=== PATIENT | male | born 1930 | race Caucasian/White ===

== ENCOUNTER 2017-09-06 11:53 | Observation (INO) ==
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
--- OUTSIDE RECORDS SUMMARY | 2017-09-06 12:09 | External Medical Summary ---
:1930 Author Organization [employer] Care Team Providers Name Role Phone DevikaAden rashid Provider Role Unavailable Allergies No Known Allergies Problems Problem Type Condition Code Onset Dates Condition Status Problem Shoulder pain, right 719.41 Active Problem Obstructive uropathy 599.60 Active Problem Cardiac arrhythmia 427.9 Active Problem Abdominal pain 789.00 Active Problem Abnormal chest x-ray 793.2 Active Problem Chest pain 786.50 Active Problem Bronchitis 490 Active Problem Hypothyroidism 244.9 Active Problem Fluid retention 276.69 Active Problem Seasonal allergies 477.9 Active Problem Ureteral calculus 592.1 Active Problem Encounter for long-term (current) V58.69 Active use of other medications Problem Hyperlipidemia, Other and 272.4 Active unspecified Problem Diabetes mellitus without mention of 250.00 Active complication, type II or unspecified type, not stated as uncontrolled Medications Medication Code System Code Instructions Start Date End Date Status Dosage Lomotil [facility] 30869-194 2.5-0.025 MG 1-2 1-31 Orally QID prn TABLETS Results No Known Results Summary Purpose [employer] Submission
--- OUTSIDE RECORDS SUMMARY | 2017-09-06 12:09 | External Medical Summary ---
:1930 Author Organization [employer] Care Team Providers Name Role Phone DevikaAden rashid Provider Role Unavailable Allergies No Known Allergies Problems Problem Type Condition ICD-9 Code Onset Dates Condition Status Problem Encounter for long-term V58.69 Active (current) use of other medications Problem Diabetes mellitus without 250.00 Active mention of complication, type II or unspecified type, not stated as uncontrolled Problem Hyperlipidemia, Other and 272.4 Active unspecified Problem Seasonal allergies 477.9 Active Problem Bronchitis 490 Active Problem Fluid retention 276.69 Active Problem Cardiac arrhythmia 427.9 Active Problem Shoulder pain, right 719.41 Active Problem Hypothyroidism 244.9 Active Problem Obstructive uropathy 599.60 Active Medications Medication Code System Code Instructions Start Date End Date Status Dosage Lomotil [facility] 81426-057 2.5-0.025 MG TAKE 1 OR 2 1-31 Orally PRN TABLETS 4 TIMES DAILY NEEDED. Results No Known Results Summary Purpose [employer] Submission
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
--- OUTSIDE RECORDS SUMMARY | 2017-09-06 12:09 | External Medical Summary ---
:1930 Author Organization [employer] Care Team Providers Name Role Phone DevikaAden rashid Provider Role Unavailable Allergies No Known Allergies Problems Problem Type Condition Code Onset Dates Condition Status Problem Obstructive uropathy 599.60 Active Problem Bronchitis 490 Active Problem Hypothyroidism 244.9 Active Problem Renal disease 593.9 Active Problem Chest pain 786.50 Active Problem Anemia 285.9 Active Problem Fluid retention 276.69 Active Problem Seasonal allergies 477.9 Active Problem Abdominal pain 789.00 Active Problem Abnormal chest x-ray 793.2 Active Problem Hyperlipidemia, Other and 272.4 Active unspecified Problem Diabetes mellitus without mention of 250.00 Active complication, type II or unspecified type, not stated as uncontrolled Problem Ureteral calculus 592.1 Active Problem Shoulder pain, right 719.41 Active Problem Encounter for long-term (current) V58.69 Active use of other medications Problem Cardiac arrhythmia 427.9 Active Medications No Known Medications Results No Known Results Summary Purpose [facility] [employer] Submission
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
--- OUTSIDE RECORDS SUMMARY | 2017-09-06 12:10 | External Medical Summary ---
:1930 Author Organization [facility] Care Team Providers Name Role Phone DevikaAden rashid Provider Role Unavailable Allergies No Known Allergies Problems Problem Type Condition ICD-9 Code Onset Dates Condition Status Problem Obstructive [...] 272.4 Active unspecified Problem Diabetes mellitus without 250.00 Active mention of complication, type II or unspecified type, not stated as uncontrolled Problem Ureteral calculus 592.1 Active Problem Shoulder pain, right 719.41 Active Problem Encounter for long-term V58.69 Active (current) use of other medications Problem Cardiac arrhythmia 427.9 Active Medications No Known Medications Results No Known Results Summary Purpose [facility] Submission
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
--- OUTSIDE RECORDS SUMMARY | 2017-09-06 12:10 | External Medical Summary ---
:1930 Author Organization [facility] Care Team Providers Name Role Phone Devika Aden Provider Role Unavailable Allergies No Known Allergies [...] Active Problem Obstructive uropathy 599.60 Active Medications No Known Medications Results No Known Results Summary Purpose [facility] Submission
--- OUTSIDE RECORDS SUMMARY | 2017-09-06 12:10 | External Medical Summary ---
[...] 244.9 Active Problem Obstructive uropathy 599.60 Active Assessment Hyperlipidemia, Other and 272.4 Active unspecified Assessment Diabetes mellitus without 250.02 Active mention of complication, type II or unspecified type, uncontrolled Assessment Hypothyroidism 244.9 Active Medications No Known Medications Results No Known Results Summary Purpose [place] [facility] [employer] Submission
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
--- OUTSIDE RECORDS SUMMARY | 2017-09-06 12:10 | External Medical Summary ---
:1930 Author Organization [employer] Care Team Providers Name Role Phone DevikaAden Provider Role Unavailable Allergies No Known Allergies [...] R05 Active Problem Renal disease N28.9 Active Problem Anemia D64.9 Active Medications No Known Medications Procedures Procedure Coding System Code Date Influenza (6 months to Adult) CPT-4 35139 May 18, 2016 Results No Known Results Immunizations Vaccine Administration Date Influenza (6 months to Adult) May 18, 2016 Summary Purpose [facility] Submission
--- OUTSIDE RECORDS SUMMARY | 2017-09-06 12:10 | External Medical Summary ---
:1930 [facility] Care Team Providers Name Role Phone [...] Active Problem Obstructive uropathy 599.60 Active Assessment Hypothyroidism 244.9 Active Assessment Hyperlipidemia, Other and 272.4 Active unspecified Assessment Diabetes mellitus without 250.00 Active mention of complication, type II or unspecified type, not stated as uncontrolled Medications Medication Code Code Instructions Start End Status Dosage System Date Date Atorvastatin [facility] 00503583368 10 MG qD 1 tablet Calcium Losartan [facility] [address]-94 25 MG ORALLY qD Apr 13, 1 tablet Potassium 2013 Gemfibrozil [facility] [address]-67 600 MG Orally 1 tablet Qd Aspirin [facility] [address]-44 81 MG Orally 1 tablet Once a day Lasix [facility] 09947210534 20 MG ORALLY Q 1 tablet AM Metformin HCl [facility] 17982963000 1000 MG BID 1 tablet Diphenoxylate-At [facility] 36557212454 2.5-0.025 MG TAKE 1 OR ropine 2 TABLETS 4 TIMES DAILY NEEDED. Super B Complex [facility] [address]83-[address] Orally Once a 1 tablet day Centrum Silver [facility] [address]-68 Orally qD 1 [place] [address]-92 Orally Twice a 1 capsule day Glucotrol [facility] [address]-69 10 MG Orally qD Sep 05, 1 tablet 2014 Levothyroxine [facility] 55880673171 50 MCG qD 1 tablet Sodium Procedures Procedure Coding System Code Date HgB A1C CPT-4 90828 October 21, 2014 MICROALBUMIN URINE CPT-4 20725 October 21, 2014 CBC CPT-4 16500 October 21, 2014 URINALYSIS CPT-4 66775 October 21, 2014 TSH CPT-4 07401 October 21, 2014 OFFICE VISITEST PT CPT-4 86002 October 21, 2014 COMP PROFILE CPT-4 54343 October 21, 2014 CREATININE; OTHER SOURCE CPT-4 40611 October 21, 2014 T4 CPT-4 23511 October 21, 2014 LIPID PROFILE CPT-4 15745 October 21, 2014 Vital Signs Date/Time: October 21, 2014 Blood Pressure Systolic 114 mm Hg Height 61 in Weight 125.6 lbs BMI 23.73 Index Blood Pressure Diastolic 62 mm Hg Results No Known Results Summary Purpose [employer] Submission
--- OUTSIDE RECORDS SUMMARY | 2017-09-06 12:10 | External Medical Summary ---
[...] 276.69 Active Problem Seasonal allergies 477.9 Active Assessment Obstructive uropathy 599.60 Active Problem Ureteral calculus 592.1 Active Problem Encounter for long-term (current) V58.69 Active use of other medications Assessment Kidney stone 592.0 Active Problem Hyperlipidemia, Other and 272.4 Active unspecified Assessment Hypothyroidism 244.9 Active Problem Diabetes mellitus without mention of 250.00 Active complication, type II or unspecified type, not stated as uncontrolled Medications No Known Medications Procedures Procedure Coding System Code Date TSH CPT-4 13041 November 16, 2014 COMP PROFILE CPT-4 21995 November 16, 2014 T4 CPT-4 98442 November 16, 2014 CBC CPT-4 18015 November 16, 2014 Results No Known Results Summary Purpose [facility] Submission
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
--- OUTSIDE RECORDS SUMMARY | 2017-09-06 12:10 | External Medical Summary ---
:1932 Author Organization [employer] Care Team Providers Name Role Phone Devika Aden Provider Role Unavailable Allergies No Known Allergies Problems Problem Type Condition Code Onset Dates Condition Status Problem Cough R05 Active Problem Anemia D64.9 Active Problem Renal disease N28.9 Active Problem Hyperlipidemia, unspecified E78.5 Active Problem Arthritis M19.90 Active Problem Type 2 diabetes mellitus without E11.9 Active complications Problem Cardiac arrhythmia, unspecified I49.9 Active Problem Environmental allergies Z91.09 Active Problem Hypothyroidism, unspecified E03.9 Active Problem Obstructive uropathy N13.9 Active Medications No Known Medications Results No Known Results Summary Purpose [employer] Submission
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
--- OUTSIDE RECORDS SUMMARY | 2017-09-06 12:10 | External Medical Summary ---
[...] medications Problem Cardiac arrhythmia 427.9 Active Medications Medication Code System Code Instructions Start Date End Date Status Dosage Lomotil [facility] [id number] 2.5-0.025 MG TAKE 1 OR 2 TABLETS 4 TIMES DAILY NEEDED. Results No Known Results Summary Purpose eClinicalWorks Submission
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
--- OUTSIDE RECORDS SUMMARY | 2017-09-06 12:10 | External Medical Summary ---
:1930 [facility] Team Providers Name Role Phone DevikaAden Provider Role Unavailable Allergies, Adverse Reactions, Alerts Substance Reaction Event Type Benadryl Info Not Available Drug Allergy Problems Problem Type Condition Code Onset Dates Condition Status Problem Obstructive uropathy 599.60 Active Problem Bronchitis 490 Active Problem Hypothyroidism 244.9 Active Problem Renal disease 593.9 Active Assessment Renal disease 593.9 Active Problem Chest pain 786.50 Active Problem Anemia 285.9 Active Problem Fluid retention 276.69 Active Problem Seasonal allergies 477.9 Active Problem Abdominal pain 789.00 Active Problem Abnormal chest x-ray 793.2 Active Assessment Ureteral calculus 592.1 Active Assessment Diabetes mellitus without mention of 250.00 Active complication, type II or unspecified type, not stated as uncontrolled Assessment Anemia 285.9 Active Assessment Hypothyroidism 244.9 Active Problem Hyperlipidemia, Other and 272.4 Active unspecified Problem Diabetes mellitus without mention of 250.00 Active complication, type II or unspecified type, not stated as uncontrolled Problem Ureteral calculus 592.1 Active Problem Shoulder pain, right 719.41 Active Problem Encounter for long-term (current) V58.69 Active use of other medications Problem Cardiac arrhythmia 427.9 Active Medications Medication Code Code Instructions Start End Status Dosage System Date Date Metformin HCl [facility] [id number] 1000 MG TAKE 1 TABLET TWICE DAILY. Centrum Silver [facility] [address]-38 Orally qD 1 tablet Ultra Mens Diphenoxylate-At [facility] [id number] 2.5-0.025 MG TAKE 1 OR ropine 2 TABLETS 4 TIMES DAILY NEEDED. Fish Oil [facility] [address]-46 Orally Twice a 1 capsule day Lomotil [facility] [address]-43 2.5-0.025 MG 1-2 Orally QID prn TABLETS Aspirin [facility] [address]-47 81 MG Orally 1 tablet Once a day Super B Complex [facility] 69[address] Orally Once a 1 tablet day Losartan [facility] 42766755717 25 MG ORALLY qD 1 tablet Potassium Lopid [facility] 35000794430 600 MG TAKE 1 TABLET DAILY. Glucotrol [facility] [address]-35 10 MG Orally qD October 092014 Gemfibrozil [facility] [address]-94 600 MG Orally 1 tablet Qd Levothyroxine [facility] [address]-50 50 mcg ORALLY 1 1/2 Sodium qD tablet ( 75 mcg) Lasix [facility] 11949741154 20 MG TAKE 1 TABLET DAILY IN THE MORNING Atorvastatin [facility] 19297470902 10 MG qD 1 tablet Calcium Procedures Procedure Coding System Code Date COMP PROFILE CPT-4 80082 December 08, 2014 HgB A1C CPT-4 55753 December 08, 2014 CBC CPT-4 32022 December 08, 2014 CREATININE; OTHER SOURCE CPT-4 01078 December 08, 2014 MICROALBUMIN URINE CPT-4 54032 December 08, 2014 OFFICE VISITEST PT CPT-4 24641 December 08, 2014 TSH CPT-4 25339 December 08, 2014 T4 CPT-4 87570 December 08, 2014 URINALYSIS CPT-4 60642 December 08, 2014 URIC ACID CPT-4 49218 December 08, 2014 Vital Signs Date/Time: December 08, 2014 Blood Pressure Systolic 118 mm Hg Height 61 in Weight 122 lbs BMI 23.05 Index Blood Pressure Diastolic 72 mm Hg Results No Known Results Summary Purpose eClinicalWorks Submission
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
--- OUTSIDE RECORDS SUMMARY | 2017-09-06 12:11 | External Medical Summary ---
[...] stated as uncontrolled Medications No Known Medications Results No Known Results Summary Purpose [employer] Submission
--- OUTSIDE RECORDS SUMMARY | 2017-09-06 12:11 | External Medical Summary ---
:1930 Author Organization [employer]Clinical[employer] Care Team Providers Name Role Phone DevikaAden sanches Provider Role Unavailable Allergies No Known Allergies [...] R05 Active Problem Renal disease N28.9 Active Assessment Lumbar spinal stenosis M48.06 Active Problem Anemia D64.9 Active Medications No Known Medications Procedures Procedure Coding System Code Date None of above events reported CPT-4 G8907 May 14, 2016 NO prophylatic IV antibiotic ordered or given CPT-4 G8918 May 14, 2016 LS TFFLUORO CPT-4 75902 May 14, 2016 Results No Known Results Summary Purpose eClinicalWorks Submission
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
--- OUTSIDE RECORDS SUMMARY | 2017-09-06 12:11 | External Medical Summary ---
:1930 Author Organization e[employer] Care Team Providers Name Role Phone Devika Aden Provider Role Unavailable Allergies, Adverse Reactions, Alerts [...] V58.69 Active use of other medications Assessment Hypothyroidism 244.9 Active Problem Hyperlipidemia, Other and 272.4 Active unspecified Assessment Diabetes mellitus without mention of 250.00 Active complication, type II or unspecified type, not stated as uncontrolled Problem Diabetes mellitus without mention of 250.00 Active complication, type II or unspecified type, not stated as uncontrolled Medications Medication Code Code Instructions Start End Status Dosage System Date Date Metformin HCl [facility] 74691460196 1000 MG BID 1 tablet Glucotrol [facility] [address]-77 10 MG Orally qD October 092014 Lasix [facility] 27699028444 20 MG TAKE 1 TABLET DAILY IN THE MORNING Aspirin [facility] [address]-12 81 MG Orally 1 tablet Once a day Lopid [facility] 04277889346 600 MG TAKE 1 TABLET DAILY. Diphenoxylate-At [facility] 52916255299 2.5-0.025 MG TAKE 1 OR ropine 2 TABLETS 4 TIMES DAILY NEEDED. Losartan [facility] 50703319747 25 MG ORALLY qD 1 tablet Potassium Lomotil [facility] 27503797560 2.5-0.025 MG TAKE 1 OR 2 TABLETS 4 TIMES DAILY NEEDED. Fish Oil [facility] [address]-35 Orally Twice a 1 capsule day Centrum Silver [facility] [address]-58 Orally qD 1 tablet Ultra Mens Gemfibrozil [facility] [address]-89 600 MG Orally 1 tablet Qd Levothyroxine [facility] [address]-77 50 mcg ORALLY 1 1/2 Sodium qD tablet ( 75 mcg) Atorvastatin [facility] 05145837202 10 MG qD 1 tablet Calcium Lipitor [facility] 06646130079 10 MG TAKE 1 TABLET DAILY Super B Complex [facility] [address] Orally Once a 1 tablet day Procedures Procedure Coding System Code Date OFFICE VISITEST PT CPT-4 30126 November 18, 2014 Vital Signs Date/Time: November 18, 2014 Blood Pressure Systolic 108 mm Hg Height 61 in Weight 123 lbs BMI 23.24 Index Blood Pressure Diastolic 60 mm Hg Results No Known Results Summary Purpose eClinicalWorks Submission
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
--- OUTSIDE RECORDS SUMMARY | 2017-09-06 12:11 | External Medical Summary ---
[...] Active Problem Seasonal allergies 477.9 Active Assessment Ureteral calculus 592.1 Active Problem Ureteral calculus 592.1 Active Problem Encounter for long-term (current) V58.69 Active use of other medications Assessment Diabetes mellitus without mention of 250.00 Active complication, type II or unspecified type, not stated as uncontrolled Problem Hyperlipidemia, Other and 272.4 Active unspecified Assessment Hypothyroidism 244.9 Active Problem Diabetes mellitus without mention of 250.00 Active complication, type II or unspecified type, not stated as uncontrolled Medications No Known Medications Procedures Procedure Coding System Code Date COMP PROFILE CPT-4 72962 November 23, 2014 TSH CPT-4 44426 November 23, 2014 Results No Known Results Summary Purpose eClinicalWorks Submission
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
--- OUTSIDE RECORDS SUMMARY | 2017-09-06 12:11 | External Medical Summary ---
[...] Anemia D64.9 Active Medications No Known Medications Results No Known Results Summary Purpose eClinicalWorks Submission
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
--- OUTSIDE RECORDS SUMMARY | 2017-09-06 12:11 | External Medical Summary | Referral Summary ---
:1930 Author Organization [facility] Address [address] [place] [address] Care Team Providers Name Role Phone Aden Fortune Primary Care Physician Encounter VC Date(s): 09/22/16 - 09/23/16 [facility] [address] [place] [address] Discharge Disposition: 01-Home or Self Care Attending Physician: Conor Garcia MD Admitting Physician: Conor Garcia MD Vital Signs Most recent to oldest [Reference Range]: 1 Temperature Oral [35.8-37.3 degC] 36.5 degC (09/23/16 8:00 AM) Temperature Temporal Artery [36.3-37.8 degC] 36.8 degC (09/22/16 1:29 PM) Peripheral Pulse Rate [60-100 bpm] 95 bpm (09/23/16 8:00 AM) Heart Rate Monitored [60-100 bpm] 107 bpm *HI* (09/22/16 7:40 PM) Respiratory Rate [14-20 br/min] 18 br/min (09/23/16 8:00 AM) Blood Pressure [90-140/60-90 mmHg] 107/62 mmHg (09/23/16 8:00 AM) Mean Arterial Pressure, Cuff 86 mmHg (09/22/16 7:40 PM) SpO2 96 % (09/23/16 8:00 AM) Remote Telemetry Ongoing (09/23/16 8:00 AM) Problem List Condition Effective Dates Status Health Status Informant Acute pain(Confirmed) Active At risk for falls(Confirmed)1 Active At risk of pressure sore(Confirmed) Active Diverticulitis(Confirmed) Active patient 1This problem was added by Discern Expert. Allergies, Adverse Reactions, Alerts Substance Reaction Severity Status Benadryl Tachycardia Active morphine Adverse Reaction Active Medications Actifed Cold & Allergy 4 mg-10 mg oral tablet 1 tabs, Oral, Sun///, 0 Refill(s) Start Date: 11/08/14 Status: Orderedaspirin 81 mg, Oral, Daily, 0 Refill(s) Start Date: 11/08/14 Status: OrderedCentrum Silver 1 tabs, Oral, Daily, 0 Refill(s) Start Date: 11/08/14 Status: OrderedClaritin 10 mg, Oral, Daily, 0 Refill(s) Start Date: 09/22/16 Status: OrderedFish Oil 1,000 mg, Oral, BID, 0 Refill(s) Start Date: 11/08/14 Status: OrderedglipiZIDE 10 mg, Oral, Daily, 0 Refill(s) Start Date: 11/08/14 Status: OrderedLasix 20 mg, Oral, Daily, 0 Refill(s) Start Date: 11/08/14 Status: Orderedlevothyroxine 50 mcg, Oral, Daily, 0 Refill(s) Start Date: 11/08/14 Status: OrderedLipitor 10 mg, Oral, Bedtime (once a day), 0 Refill(s) Start Date: 11/08/14 Status: OrderedLomotil 2.5 mg-0.025 mg oral tablet 2 tabs, Oral, QID, Diarrhea/Loose Stools, 0 Refill(s) Start Date: 11/08/14 Status: OrderedLopid 600 mg, Oral, Bedtime (once a day), 0 Refill(s) Start Date: 11/08/14 Status: Orderedlosartan 25 mg, Oral, Daily, 0 Refill(s) Start Date: 11/08/14 Status: OrderedmetFORMIN 1,000 mg, Oral, BID, 0 Refill(s) Start Date: 11/08/14 Status: OrderedRefresh 1 drops, Eye-Both, BID, as needed, 0 Refill(s) Start Date: 09/22/16 Status: OrderedSuper B Complex 1 tabs, Oral, Daily, 0 Refill(s) Start Date: 11/08/14 Status: Ordered Results Hematology Most recent to oldest [Reference Range]: 1 WBC [4.8-10.8 10*3/uL] 8.3 10*3/uL (09/23/16 7:51 AM) RBC [4.60-6.20] 2.78 *LOW* (09/23/16 7:51 AM) Hgb [14.0-18.0 gm/dL] 8.4 gm/dL *LOW* (09/23/16 7:51 AM) Hct [42.0-52.0 %] 25.4 % *LOW* (09/23/16 7:51 AM) MCV [82.0-99.0 fL] 91.4 fL (09/23/16 7:51 AM) MCH [27.0-32.0 pg] 30.2 pg (09/23/16 7:51 AM) MCHC [32.0-36.0 gm/dL] 33.1 gm/dL (09/23/16 7:51 AM) RDW [11.5-14.5 %] 16.4 % *HI* (09/23/16 7:51 AM) Platelet [150-400 10*3/uL] 285 10*3/uL (09/23/16 7:51 AM) MPV [9.4-12.3 fL] 9.1 fL *LOW* (09/23/16 7:51 AM) Immature Granulocytes [0.0-1.0 %] 0.7 % (09/23/16 7:51 AM) Neutrophils [51-75 %] 70 % (09/23/16 7:51 AM) Lymphocytes [20-46 %] 16 % *LOW* (09/23/16 7:51 AM) Monocytes [4-11 %] 10 % (09/23/16 7:51 AM) Eosinophils [0-4 %] 4 % (09/23/16 7:51 AM) Basophils [0-2 %] 0 % (09/23/16 7:51 AM) Neutro Absolute [1.90-7.00] 5.78 (09/23/16 7:51 AM) Lymph Absolute [0.80-3.30] 1.32 (09/23/16 7:51 AM) [place]t Absolute [0.30-1.00] 0.79 (09/23/16 7:51 AM) Eos Absolute [0.00-0.50] 0.29 (09/23/16 7:51 AM) Baso Absolute [0.00-0.20] 0.03 (09/23/16 7:51 AM) Nucleated RBC Automated [0 /100 WBC] 0.0 /100 WBC (09/23/16 7:51 AM) Chemistry Most recent to oldest [Reference Range]: 1 Sodium Lvl [136-144 mEq/L] 136 mEq/L (09/23/16 7:51 AM) Potassium Lvl [3.6-5.1 mEq/L] 3.7 mEq/L (09/23/16 7:51 AM) Chloride [99-109 mEq/L] 106 mEq/L (09/23/16 7:51 AM) CO2 [22-32 mEq/L] 22 mEq/L (09/23/16 7:51 AM) AGAP [3-20] 8 (09/23/16 7:51 AM) BUN [4-20 mg/dL] 52 mg/dL *HI* (09/23/16 7:51 AM) Glucose Lvl [70-100 mg/dL] 214 mg/dL *HI* (09/23/16 7:51 AM) Creatinine Lvl [0.64-1.27 mg/dL] 0.82 mg/dL (09/23/16 7:51 AM) eGFR [>60] >60 1 (09/23/16 7:51 AM) Calcium Lvl [8.6-10.0 mg/dL] 8.3 mg/dL *LOW* (09/23/16 7:51 AM) Albumin Lvl [3.5-4.8 gm/dL] 2.9 gm/dL *LOW* (09/22/16 1:51 PM) Total Protein [6.1-7.9 gm/dL] 5.9 gm/dL *LOW* (09/22/16 1:51 PM) Globulin [1.9-4.3 gm/dL] 3.0 gm/dL (09/22/16 1:51 PM) ALT [17-63 U/L] 13 U/L *LOW* (09/22/16 1:51 PM) AST [15-41 U/L] 20 U/L (09/22/16 1:51 PM) Alk Phos [26-104 U/L] 43 U/L (09/22/16 1:51 PM) Bili Total [0.2-1.2 mg/dL] 0.2 mg/dL 2 (09/22/16 1:51 PM) Troponin [<0.06 ng/mL] <0.05 ng/mL (09/22/16 1:51 PM) Blood Glucose, Capillary [70-100 mg/dL] 197 mg/dL *HI* (09/23/16 9:41 AM) 1Result Comment: Multiply eGFR results by 1.21 for race.2Result Comment: Naproxen, specifically the metabolite O-desmethylnaproxen, may cause spurious elevation in Total Bilirubin levels.Blood Bank Results Most recent to oldest [Reference Range]: 1 ABO/Rh A POS (09/22/16 4:46 PM) Antibody Screen Tube NEG (09/22/16 4:46 PM) Immunizations Given and Recorded Vaccine Date Status Refusal Reason tetanus-diphth toxoids (Td) adult/adol 09/19/02 Given Procedures Procedure Date Related Diagnosis Body Site Cystoscopy Lithotripsy Ureteral Stone (Right)1 11/09/14 Cystoscopy Retrograde Pyelogram (Right)2 11/09/14 Cystoscopy Stone Extraction3 11/09/14 Cystoscopy Ureteral Stent Insertion (Right)4 11/09/14 Cystoscopy Ureteroscopy (Right)5 11/09/14 1auto-populated from documented surgical [id number] from documented surgical [id number] from documented surgical [id number] from documented surgical [id number] from documented surgical case Social History Social History Type Response Smoking Status Former smoker Assessment and Plan No data available for this section
--- OUTSIDE RECORDS SUMMARY | 2017-09-06 12:11 | External Medical Summary ---
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 01824013555 324 MG TAKE 1 CAPSULE AT BEDTIME FOR LEG CRAMPS Diphenoxylate-At [facility] 20498115658 2.5-0.025 MG TAKE 1 OR ropine 2 TABLETS 4 TIMES DAILY NEEDED. Lomotil [facility] 03228305321 2.5-0.025 MG TAKE 1 OR Orally 2 TABLETS DIRECTED 4 TIMES DAILY NEEDED. Aspirin [facility] [address]-87 81 MG Orally 1 tablet Once a day Lasix [facility] 79079232269 20 MG TAKE 1 TABLET DAILY IN THE MORNING Augmentin [facility] [address]-57 875-125 MG February 21, 1 tablet Orally BID [address] [facility] 78824229656 1000 MG TAKE 1 TABLET TWICE DAILY. Fish Oil [facility] [address]-66 Orally Twice a 1 capsule day Lipitor [facility] [address]-81 10 MG Orally qD [address] [facility] [address]-93 600 MG Orally 1 tablet Qd Advair Diskus [facility] [address]-46 250-50 MCG/DOSE February 21, puff Inhalation BID [address] [facility] [address]-68 10 MG Orally qD January 23 tablet [address] [facility] 23998740430 600 MG TAKE 1 TABLET DAILY. Centrum Silver [facility] [address]-63 Orally qD 1 tablet Ultra Mens Atorvastatin [facility] 39619405657 10 MG qD 1 tablet Calcium Losartan [facility] 36508258956 25 MG TAKE (1) Potassium TABLET DAILY Levothyroxine [facility] 34200362086 75 MCG TAKE 1 Sodium TABLET DAILY Super B Complex [facility] [address] Orally Once a 1 tablet day Procedures Procedure Coding System Code Date Depo Medrol 80mg CPT-4 J1040 February 22, 2016 Administration Fee 18yrs and up 1st injection CPT-4 70436 February 22, 2016 OFFICE VISITEST PT CPT-4 89452 February 22, 2016 Vital Signs Date/Time: February 22, 2016 Blood Pressure Systolic 114 mm Hg Height 61 in Weight 115.8 lbs BMI 21.88 Index Blood Pressure Diastolic 68 mm Hg Results No Known Results Summary Purpose eClinicalWorks Submission
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
--- OUTSIDE RECORDS SUMMARY | 2017-09-06 12:11 | External Medical Summary ---
[...] Active Problem Seasonal allergies 477.9 Active Assessment Hypothyroidism 244.9 Active Assessment Hyperlipidemia, Other and 272.4 Active unspecified Assessment Ureteral calculus 592.1 Active Assessment Abnormal chest x-ray 793.2 Active Problem Ureteral calculus 592.1 Active Problem Encounter for long-term (current) V58.69 Active use of other medications Assessment Abdominal pain 789.00 Active Problem Hyperlipidemia, Other and 272.4 Active unspecified Assessment Chest pain 786.50 Active Problem Diabetes mellitus without mention of 250.00 Active complication, type II or unspecified type, not stated as uncontrolled Medications Medication Code Code Instructions Start End Status Dosage System Date Date Lasix [facility] [id number] 20 MG ORALLY Q 1 tablet AM Lomotil [facility] 82591207038 2.5-0.025 MG TAKE 1 OR 2 TABLETS 4 TIMES DAILY NEEDED. Levothyroxine [facility] 23680525265 50 MCG qD 1 tablet Sodium Fish Oil [facility] [address]-18 Orally Twice a 1 capsule day Metformin HCl [facility] 35135532691 1000 MG BID 1 tablet Aspirin [facility] [address]-02 81 MG Orally 1 tablet Once a day Losartan ND 89035031662 25 MG ORALLY qD 1 tablet Potassium Diphenoxylate-At [facility] 98287860414 2.5-0.025 MG TAKE 1 OR ropine 2 TABLETS 4 TIMES DAILY NEEDED. Atorvastatin [facility] 12437650540 10 MG qD 1 tablet Calcium Super B Complex [facility] [address] Orally Once a 1 tablet day Gemfibrozil [facility] [address]-36 600 MG Orally 1 tablet Qd Lipitor [facility] 11009678193 10 MG TAKE 1 TABLET DAILY Glucotrol [facility] [address]-08 10 MG Orally qD October 09 tablet 2014 Centrum Silver [facility] [address]-45 Orally qD 1 tablet Ultra Mens Procedures Procedure Coding System Code Date KUB UPRIGHT CPT-4 95362 November 08, 2014 COMP PROFILE CPT-4 00162 November 08, 2014 CHEST XRAY 2 VIEW CPT-4 51419 November 08, 2014 TSH CPT-4 40573 November 08, 2014 CBC CPT-4 63276 November 08, 2014 Vital Signs Date/Time: November 08, 2014 Blood Pressure Systolic 128 mm Hg Height 61 in Weight 125 lbs BMI 23.62 Index Blood Pressure Diastolic 82 mm Hg Results No Known Results Summary Purpose [employer] Submission
--- OUTSIDE RECORDS SUMMARY | 2017-09-06 12:11 | External Medical Summary ---
:1930 Author Organization [employer] Care Team Providers Name Role Phone Aden Fortune Provider Role Unavailable Allergies No Known Allergies Problems Problem Type Condition Code Onset Dates Condition Status Assessment Flu vaccine need Z23 Active Medications No Known Medications Procedures Procedure Coding System Code Date Influenza (6 months to Adult) CPT-4 64660 May 13, 2015 Results No Known Results Immunizations Vaccine Administration Date Influenza (6 months to Adult) May 13, 2015 Summary Purpose [employer]ClinicalWorks Submission
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
--- OUTSIDE RECORDS SUMMARY | 2017-09-06 12:11 | External Medical Summary ---
:1930 Author Organization eClinicalWorks Care Team Providers Name Role Phone Aden Fortune Provider Role Unavailable Allergies, Adverse Reactions, Alerts Substance Reaction Event Type Benadryl Info Not Available Drug Allergy Problems Problem Type Condition Code Onset Dates Condition Status Problem Cough R05 Active Problem Anemia D64.9 Active Problem Renal disease N28.9 Active Assessment Hyperlipidemia, unspecified E78.5 Active Assessment Type 2 diabetes mellitus without E11.9 Active complications Problem Hyperlipidemia, unspecified E78.5 Active Problem Arthritis M19.90 Active Problem Type 2 diabetes mellitus without E11.9 Active complications Problem Cardiac arrhythmia, unspecified I49.9 Active Problem Environmental allergies Z91.09 Active Problem Hypothyroidism, unspecified E03.9 Active Problem Obstructive uropathy N13.9 Active Medications Medication Code Code Instructions Start End Status Dosage System Date Date Lomotil [facility] [id number] 2.5-0.025 MG TAKE 1 OR 2 TABLETS 4 TIMES DAILY NEEDED. Glucotrol [facility] [address]-66 10 MG Orally qD May 02, 1 tablet 2014 Diphenoxylate-At [facility] 78093717020 2.5-0.025 MG TAKE 1 OR ropine 2 TABLETS 4 TIMES DAILY NEEDED. Losartan [facility] 54895065679 25 MG TAKE (1) Potassium TABLET DAILY Cipro [facility] [address]-30 500 MG ORALLY Jun 02, 1 tablet BID [address] [facility] [address]-06 600 MG Orally 1 tablet Qd Lasix [facility] 39507091078 20 MG TAKE 1 TABLET DAILY IN THE MORNING Ciprofloxacin [facility] [address]-90 500 MG Orally Mar 31, 1 tablet HCl Twice a day [address] [facility] 96388117133 10 MG TAKE 1 TABLET DAILY Lopid [facility] 03942230930 600 MG TAKE 1 TABLET DAILY. Centrum Silver [facility] [address]-29 Orally qD 1 tablet Ultra Mens Super B Complex [facility] [address] Orally Once a 1 tablet day Atorvastatin [facility] 31094129215 10 MG qD 1 tablet Calcium Metformin HCl [facility] 88365072873 1000 MG TAKE 1 TABLET TWICE DAILY. Aspirin [facility] [address]-55 81 MG Orally 1 tablet Once a day Levothyroxine [facility] 54659176878 75 MCG TAKE 1 Sodium TABLET DAILY Fish Oil [facility] [address]-01 Orally Twice a 1 capsule day Procedures Procedure Coding System Code Date OFFICE VISITEST PT CPT-4 25953 Jun 02, 2015 Vital Signs Date/Time: Jun 02, 2015 Blood Pressure Systolic 112 mm Hg Height 61 in Weight 124 lbs BMI 23.43 Index Blood Pressure Diastolic 68 mm Hg Results No Known Results Summary Purpose eClinicalWorks Submission
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
--- OUTSIDE RECORDS SUMMARY | 2017-09-06 12:12 | External Medical Summary ---
[...] N28.9 Active Problem Anemia D64.9 Active Medications Medication Code System Code Instructions Start Date End Date Status Dosage Lomotil [facility] [id number] 2.5-0.025 MG TAKE 1 OR 2 TABLETS 4 TIMES DAILY NEEDED. Results No Known Results Summary Purpose [employer] Submission
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
--- OUTSIDE RECORDS SUMMARY | 2017-09-06 12:12 | External Medical Summary ---
:1930 Author Organization [employer] Care Team Providers Name Role Phone Brian Cruz Provider Role Unavailable Allergies, Adverse Reactions, Alerts [...] Problem Abnormal chest x-ray 793.2 Active Assessment Sinusitis, unspecified 461.9 Active Problem Hyperlipidemia, Other and 272.4 Active [...] Start End Status Dosage System Date Date Ciprofloxacin [facility] [address]-65 250 MG Orally December 26, 1 tablet HCl Twice a day 2014 Glucotrol [facility] [address]-40 10 MG Orally qD October 092014 Super B Complex [facility] 28743-[address]28 Orally Once a 1 tablet day Fish Oil [facility] [address]-22 Orally Twice a 1 capsule day Centrum Silver [facility] [address]-19 Orally qD 1 tablet Ultra Mens Atorvastatin [facility] 38637968441 10 MG qD 1 tablet Calcium Aspirin [facility] [address]-74 81 MG Orally 1 tablet Once a day Gemfibrozil [facility] [address]-18 600 MG Orally 1 tablet Qd Lomotil [facility] [address]-21 2.5-0.025 MG 1-2 Orally QID prn TABLETS Metformin HCl [facility] 01401270532 1000 MG TAKE 1 TABLET TWICE DAILY. Levothyroxine [facility] [address]-81 .075 mg ORALLY 1 TABLET Sodium qD Diphenoxylate-At [facility] 09598930280 2.5-0.025 MG TAKE 1 OR ropine 2 TABLETS 4 TIMES DAILY NEEDED. Lopid [facility] 14063967273 600 MG TAKE 1 TABLET DAILY. Losartan [facility] 69815007239 25 MG ORALLY qD 1 tablet Potassium Lasix [facility] 10944718899 20 MG TAKE 1 TABLET DAILY IN THE MORNING Procedures Procedure Coding System Code Date Celestone CPT-4 J0702 December 26, 2014 Administration Fee /THER/PROPH/DIAG INJ, SC/IM CPT-4 09602 December 26, 2014 OFFICE VISITEST PT CPT-4 80754 December 26, 2014 Administration Fee 18yrs and up 1st injection CPT-4 93547 December 26, 2014 Depo Medrol 80mg CPT-4 J1040 December 26, 2014 Vital Signs Date/Time: December 26, 2014 Blood Pressure Systolic 96 mm Hg Height 61 in Weight 123 lbs BMI 23.24 Index Blood Pressure Diastolic 50 mm Hg Results No Known Results Summary Purpose [employer] Submission
--- OUTSIDE RECORDS SUMMARY | 2017-09-06 12:12 | External Medical Summary ---
:1930 Author Organization [employer] Care Team Providers Name Role Phone Brian Cruz Provider Role Unavailable Allergies, Adverse Reactions, Alerts Substance Reaction Event Type Benadryl Info Not Available Drug Allergy Problems Problem Type Condition ICD-9 Code Onset [...] Start End Status Dosage System Date Date Levothyroxine [facility] [address]-14 .075 mg ORALLY 1 TABLET Sodium qD Glucotrol [facility] [address]-17 10 MG Orally qD February 01, tablet 2014 Aspirin [facility] [address]-12 81 MG Orally 1 tablet Once a day Diphenoxylate-At [facility] 94294562388 2.5-0.025 MG TAKE 1 OR ropine 2 TABLETS 4 TIMES DAILY NEEDED. Gemfibrozil [facility] [address]-65 600 MG Orally 1 tablet Qd Lomotil [facility] 54251172960 2.5-0.025 MG TAKE 1 OR 2 TABLETS 4 TIMES DAILY NEEDED. Centrum Silver [facility] [address]-41 Orally qD 1 tablet Ultra Mens Ciprofloxacin [facility] [address]-37 500 MG Orally Mar 31, 1 tablet HCl Twice a day 2014 Losartan [facility] 74624613426 25 MG ORALLY qD 1 tablet Potassium Atorvastatin [facility] 63024592574 10 MG qD 1 tablet Calcium Fish Oil [facility] [address]-26 Orally Twice a 1 capsule day Ciprofloxacin [facility] [address]-05 250 MG Orally December 26, 1 tablet HCl Twice a day 2014 Super B Complex [facility] 34391-[address] Orally Once a 1 tablet day Lasix [facility] 25764611007 20 MG TAKE 1 TABLET DAILY IN THE MORNING Metformin HCl [facility] 30395705585 1000 MG TAKE 1 TABLET TWICE DAILY. Lopid [facility] 63837686310 600 MG TAKE 1 TABLET DAILY. Procedures Procedure Coding System Code Date OFFICE VISITEST PT CPT-4 26347 Mar 31, 2015 Vital Signs Date/Time: Mar 31, 2015 Blood Pressure Systolic 110 mm Hg Height 61 in Weight 121 lbs BMI 22.86 Index Blood Pressure Diastolic 76 mm Hg Results No Known Results Summary Purpose [employer] Submission
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
--- OUTSIDE RECORDS SUMMARY | 2017-09-06 12:12 | External Medical Summary ---
:1930 Author Organization [employer] Care Team Providers Name Role Phone Aden Fortune Provider Role Unavailable Allergies No Known Allergies Problems Problem Type Condition ICD-9 Code Onset Dates Condition Status Problem Shoulder [...] calculus 592.1 Active Problem Encounter for long-term V58.69 Active (current) use of other medications Assessment Abdominal pain 789.00 Active Problem Hyperlipidemia, Other and 272.4 Active unspecified Assessment Chest pain 786.50 Active Problem Diabetes mellitus without 250.00 Active mention of complication, type II or unspecified type, not stated as uncontrolled Medications No Known Medications Procedures Procedure Coding System Code Date CT CHEST W/CONTRAST CPT-4 72846 November 08, 2014 CT ABD W CPT-4 06209 November 08, 2014 Results No Known Results Summary Purpose [employer] Submission
--- OUTSIDE RECORDS SUMMARY | 2017-09-06 12:12 | External Medical Summary ---
:1930 Author Organization [facility] Care Team Providers Name Role Phone DevikaAden [...] E03.9 Active Problem Obstructive uropathy N13.9 Active Assessment Anemia D64.9 Active Assessment Environmental allergies Z91.09 Active Assessment Cough R05 Active Assessment Renal disease N28.9 Active Assessment Hypothyroidism, unspecified E03.9 Active Assessment Arthritis M19.90 Active Assessment Cardiac arrhythmia, unspecified I49.9 Active Assessment Hyperlipidemia, unspecified E78.5 Active Assessment Obstructive uropathy N13.9 Active Assessment Type 2 diabetes mellitus without E11.9 Active complications Medications Medication Code Code Instructions Start End Status Dosage System Date Date Lasix [facility] 39731113430 20 MG TAKE 1 TABLET DAILY IN THE MORNING Lipitor [facility] 01499125295 10 MG TAKE 1 TABLET DAILY Levothyroxine [facility] [address]-30 .075 mg ORALLY 1 TABLET Sodium qD Diphenoxylate-At [facility] 47967740004 2.5-0.025 MG TAKE 1 OR ropine 2 TABLETS 4 TIMES DAILY NEEDED. Atorvastatin [facility] 01046635326 10 MG qD 1 tablet Calcium Losartan [facility] 78014265037 25 MG TAKE (1) Potassium TABLET DAILY Fish Oil [facility] [address]-98 Orally Twice a 1 capsule day Gemfibrozil [facility] [address]-16 600 MG Orally 1 tablet Qd Ciprofloxacin [facility] [address]-54 500 MG Orally Mar 31, 1 tablet HCl Twice a day 2014 Lomotil [facility] 74153713288 2.5-0.025 MG TAKE 1 OR 2 TABLETS 4 TIMES DAILY NEEDED. Glucotrol [facility] [address]-19 10 MG Orally qD May 02, 1 tablet 2014 Centrum Silver [facility] [address]-93 Orally qD 1 tablet Ultra Mens Aspirin [facility] [address]-11 81 MG Orally 1 tablet Once a day Metformin HCl [facility] 62560482691 1000 MG TAKE 1 TABLET TWICE DAILY. Lopid [facility] 20588225406 600 MG TAKE 1 TABLET DAILY. Super B Complex [facility] [address]4972-[address]39 Orally Once a 1 tablet day Procedures Procedure Coding System Code Date PSA,TOTAL CPT-4 22708 May 18, 2015 OCCULT BLOOD, FECAL, IMMUNOASSAY CPT-4 88087 May 18, 2015 T4 CPT-4 00698 May 18, 2015 MICROALBUMIN URINE CPT-4 13143 May 18, 2015 HgB A1C CPT-4 95895 May 18, 2015 LIPID PROFILE CPT-4 08160 May 18, 2015 CREATININE; OTHER SOURCE CPT-4 24086 May 18, 2015 TSH CPT-4 96850 May 18, 2015 URINALYSIS CPT-4 57684 May 18, 2015 COMP PROFILE CPT-4 99813 May 18, 2015 CHEST XRAY 2 VIEW CPT-4 20155 May 18, 2015 ELBOW 2 VIEW CPT-4 01216 May 18, 2015 CBC CPT-4 30670 May 18, 2015 EKG WITH INTERPRETAT CPT-4 14151 May 18, 2015 OFFICE VISITEST PT CPT-4 08983 May 18, 2015 NATRIURETIC PEPTIDE CPT-4 26877 May 18, 2015 Vital Signs Date/Time: May 18, 2015 Blood Pressure Systolic 110 mm Hg Height 61 in Weight 123 lbs BMI 23.24 Index Blood Pressure Diastolic 66 mm Hg Results Name Result Date Reference Range Unit Abnormality Flag X ray : Chest 2 views CBC EKG X ray : Elbow, right 2 view Summary Purpose [employer]Works Submission
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
--- OUTSIDE RECORDS SUMMARY | 2017-09-06 12:12 | External Medical Summary ---
[...] Medications Medication Code Code Instructions Start End Date Status Dosage System Date Levothyroxine [facility] 62155-56 .075 mg ORALLY 1 TABLET Sodium 49-07 qD Results No Known Results Summary Purpose eClinicalWorks Submission
--- OUTSIDE RECORDS SUMMARY | 2017-09-06 12:13 | External Medical Summary | Continuity of Care Document ---
:[address] [facility] Allergies Active Description Code Type Severity Reaction Onset Reported/ Identified Relationship Clinical to Patient Status Yes Benadryl Drug Severe Anaphylax 11/06/2010 Aller is gy Yes morphine Drug Moderate Adverse 11/25/2013 Aller Reaction gy Yes morphine NKMA N/A Adverse 12/08/2013 Reaction Yes No Known Food N/A N/A 12/14/2013 Food Aller Allergies gy Yes Benadryl NKMA N/A [id number] 11/09/2014 [id number] sLDQ Medications Medication Packaging Start Stop Route Dosage Sig Date Date 11/09/19 Oral 1,000 mg metFORMIN(metFORMI 15 1,000 mg, Oral, N) BID 11/09/19 Oral 10 mg 10 glipiZIDE(glipiZID 15 mg, Oral, Daily E) 11/09/19 Oral 10 mg 10 atorvastatin(Lipit 15 mg, Oral, or) Bedtime (once a day) 11/09/19 Oral 25 mg 25 losartan(losartan) 15 mg, Oral, Daily 11/09/19 Oral 20 mg 20 furosemide(Lasix) 15 mg, Oral, Daily 2 tabs 11/09/19 Oral 2 diphenoxylate-atro 15 tabs, Oral, pine(Lomotil 2.5 QID, PRN: mg-0.025 mg oral Diarrhea/Loose tablet) Stools, 0 Refill(s) 11/09/19 Oral 50 mcg 50 levothyroxine(levo 15 mcg, Oral, thyroxine) Daily, 0 Refill(s) 11/09/19 Oral 81 mg 81 aspirin(aspirin) 15 mg, Oral, Daily 11/09/19 Oral 600 mg 600 gemfibrozil(Lopid) 15 mg, Oral, Bedtime (once a day), 0 Refill(s) 1 tabs 11/09/19 Oral 1 chlorpheniramine-p 15 tabs, Oral, henylephrine(Actif Fri/// ed Cold Allergy 4 mg-10 mg oral tablet) 1 tabs 11/09/19 Oral 25 mg 25 losartan(losartan) 15 015 mg, Oral, Daily 2 tabs 11/09/19 Oral 10 mg 10 glipiZIDE(glipiZID 15 015 mg, Oral, Daily E) 1 tabs 11/09/19 Oral 600 mg 600 gemfibrozil(Lopid) 15 015 mg, Oral, BID 1 tabs 11/09/19 Oral 20 mg 20 furosemide(Lasix) 15 015 mg, Oral, Daily 1 tabs 11/09/19 Oral 10 mg 10 atorvastatin(Lipit 15 015 mg, Oral, or) Bedtime (once a day) 1 tabs 11/09/19 Oral 50 mcg 50 levothyroxine(levo 15 015 mcg, Oral, thyroxine) Daily 1 tabs 11/09/19 Oral 1 HYDROcodone-acetam 15 015 tabs, Oral, inophen([place] 5 q4hr, PRN: Pain mg-325 mg oral Moderate (4-6) tablet) 2 mL 11/09/19 IV Push 4 mg 4 ondansetron(Zofran 15 015 mg, IV Push, ) q6hr, PRN: Nausea 1 mL 11/09/19 IntraMuscular 1 mg 1 glucagon(glucagon) 15 015 mg, IntraMuscular, As Indicated, PRN: Hypoglycemia/Lo w Blood Sugar 0.4 mL 11/09/19 IV Push 0.4 mg 0.4 HYDROmorphone(HYDR 15 015 mg, IV Push, Omorphone) q2hr, PRN: Pain Severe (7-10) Sodium 1,000 mL 11/09/19 IV 125 Chloride 15 015 mL/hr, IV 0.9%(Sodium Chloride 0.9% 1,000 mL) 25 mL 11/09/19 IV Push 12.5 g Dextrose 50% 15 015 12.5 g, IV in Water(Dextrose Push, q15min, 50% in Water PRN: Injection) Hypoglycemia/Lo w Blood Sugar 250 mL 11/09/19 IV 50 Dextrose 10% 15 015 mL/hr, IV in Water(Dextrose 10% in Water 250 mL) 1 tabs 11/09/19 Oral 500 mg 500 calcium 15 015 mg, Oral, q4hr, carbonate(Tums) PRN: GERD/Heartburn 2 tabs 11/09/19 Oral 650 mg 650 acetaminophen(acet 15 015 mg, Oral, q4hr, aminophen) PRN: Other (See Comment) 1,000 mL 11/10/19 IV 20 Lactated Ringers 15 015 mL/hr, IV Injection(Lactated Ringers Injection 1,000 mL) 10 mL 11/10/19 IV Push 1 g 1 ceFAZolin(ceFAZoli 15 015 g, IV Push, n) PREOP 0.4 mL 11/10/19 IV Push 2 mg 2 haloperidol(Haldol 15 015 mg, IV Push, ) q4hr, PRN: Agitation 1 tabs 11/11/19 Oral 250 mg 1 ciprofloxacin(Cipr 15 015 tabs, Oral, o 250 mg oral q12hr, 10 tabs tablet) 1 tabs 11/11/19 Oral 1 HYDROcodone-acetam 15 015 tabs, Oral, inophen([place] 5 q6hr, 30 tabs, mg-325 mg oral PRN: as needed tablet) for pain 2 mL 09/22/19 IV Push 4 mg 4 ondansetron(Zofran 17 017 mg=2 mL, IV ) Push, q30min, PRN: Nausea or Vomiting 4 tabs 09/22/19 Oral 324 mg 324 aspirin(aspirin) 17 017 mg=4 tabs, Oral, Once, PRN: Other (See Comment) 2 mL 09/22/19 IV Push 4 mg 4 ondansetron(Zofran 17 017 mg=2 mL, IV ) Push, q6hr, PRN: Nausea Sodium 1,000 mL 09/22/19 IV 80 Chloride 17 017 mL/hr, IV 0.9%(Sodium Chloride 0.9% 1,000 mL) 2 tabs 09/22/19 Oral 650 mg 650 acetaminophen(acet 17 017 mg=2 tabs, aminophen) Oral, q4hr, PRN: Pain Mild (1-3) 09/22/19 Oral 10 mg 10 loratadine(Clariti 17 mg, Oral, n) Daily, 0 Refill(s) 2 tabs 09/22/19 Oral 1,000 mg metFORMIN(metFORMI 17 017 1,000 mg=2 N) tabs, Oral, BIDWM 1 tabs 09/22/19 Oral 25 mg 25 losartan(losartan) 17 017 mg=1 tabs, Oral, Daily 2 tabs 09/22/19 Oral 10 mg 10 glipiZIDE(glipiZID 17 017 mg=2 tabs, E) Oral, Daily 1 tabs 09/22/19 Oral 10 mg 10 loratadine(Clariti 17 017 mg=1 tabs, n) Oral, Daily 1 tabs 09/22/19 Oral 600 mg 600 gemfibrozil(Lopid) 17 017 mg=1 tabs, Oral, Bedtime (once a day) 1 tabs 09/22/19 Oral 20 mg 20 furosemide(Lasix) 17 017 mg=1 tabs, Oral, Daily 1 tabs 09/22/19 Oral 10 mg 10 atorvastatin(Lipit 17 017 mg=1 tabs, or) Oral, Bedtime (once a day) 1 tabs 09/22/19 Oral 81 mg 81 aspirin(aspirin) 17 017 mg=1 tabs, Oral, Daily 2 tabs 09/22/19 Oral 2 diphenoxylate-atro 17 017 tabs, Oral, pine(Lomotil 2.5 QID, PRN: mg-0.025 mg oral Diarrhea/Loose tablet) Stools 1 tabs 09/22/19 Oral 50 mcg 50 levothyroxine(levo 17 017 mcg=1 tabs, thyroxine) Oral, qAM 1 caps 09/22/19 Oral 1,000 mg omega-3 17 017 1,000 mg=1 polyunsaturated caps, Oral, BID fatty acids(omega-3 polyunsaturated fatty acids 1000 mg oral capsule) ocular 1 drops 09/22/19 Eye-Both 1 lubricant(Refresh 17 017 drops, Plus ophthalmic Eye-Both, BID, solution) PRN: Dry Eyes 2 mL 03/24/20 IV Push 4 mg 4 ondansetron(Zofran 17 017 mg=2 mL, IV ) Push, Once, PRN: Nausea or Vomiting 50 mL 03/24/20 IV Push 25 g 25 Dextrose 50% 17 017 g=50 mL, IV in Water(Dextrose Push, Once, 50% in Water PRN: Injection) Hypoglycemia/Lo w Blood Sugar 03/24/20 See predniSONE(predniS 17 Instructions, ONE 10 mg oral take 4 tabs tablet) oral x 4 days then decrease by 1 tab every 4 days started 03/10, 0 Refill(s) 03/24/20 Oral 500 mg 500 ciprofloxacin(Cipr 17 017 mg, Oral, o) q12hr, started 03/17 x 10 days, 0 Refill(s) 2 tabs 03/24/20 Oral 1,300 mg acetaminophen(Tyle 17 1,300 mg=2 nol 8 HR Arthritis tabs, Oral, Pain 650 mg oral q8hr, PRN: as tablet, extended needed for release) pain, 0 Refill(s) 1 major 03/24/20 Topical 1 triamcinolone 17 major, Topical, topical(triamcinol BID, PRN: Rash, one 0.5% 0 Refill(s) topical cream) Sodium 1,000 mL 03/24/20 IV 80 Chloride 17 017 mL/hr, IV 0.9%(Sodium Chloride 0.9% 1,000 mL) 10 mL 03/24/20 IV Push 1 g 1 cefTRIAXone(Roceph 17 017 g=10 mL, IV in) Push, q24hr 2 tabs 03/24/20 Oral 1,300 mg acetaminophen(acet 17 017 1,300 mg=2 aminophen) tabs, Oral, q8hr, PRN: Pain Mild (1-3) 1 tabs 03/24/20 Oral 10 mg 10 atorvastatin(Lipit 17 017 mg=1 tabs, or) Oral, Bedtime (once a day) 1 tabs 03/24/20 Oral 81 mg 81 aspirin(aspirin) 17 017 mg=1 tabs, Oral, Daily 2 tabs 03/24/20 Oral 1,000 mg metFORMIN(metFORMI 17 017 1,000 mg=2 N) tabs, Oral, BID 1 tabs 03/24/20 Oral 25 mg 25 losartan(losartan) 17 017 mg=1 tabs, Oral, Daily 2 tabs 03/24/20 Oral 10 mg 10 glipiZIDE(glipiZID 17 017 mg=2 tabs, E) Oral, Daily 1 tabs 03/24/20 Oral 10 mg 10 loratadine(Clariti 17 017 mg=1 tabs, n) Oral, Daily 1 tabs 03/24/20 Oral 600 mg 600 gemfibrozil(Lopid) 17 017 mg=1 tabs, Oral, Bedtime (once a day) 1 tabs 03/24/20 Oral 20 mg 20 furosemide(Lasix) 17 017 mg=1 tabs, Oral, Daily 2 tabs 03/24/20 Oral 2 diphenoxylate-atro 17 017 tabs, Oral, pine(Lomotil 2.5 QID, PRN: mg-0.025 mg oral Diarrhea/Loose tablet) Stools 1 tabs 03/24/20 Oral 75 mcg 75 levothyroxine(levo 17 017 mcg=1 tabs, thyroxine) Oral, Daily 0.2 mL 03/26/20 SubCutaneous 20 units 20 insulin 17 017 units=0.2 mL, aspart(NovoLOG) SubCutaneous, Once sodium 3 mL 03/26/20 NEB 3 chloride(sodium 17 017 mL, NEB, TID chloride 3% inhalation solution) 2 mL 03/26/20 NEB 0.5 mg 0.5 budesonide(budeson 17 017 mg=2 mL, NEB, david 0.5 mg/2 mL BID inhalation suspension) 3 mL 03/26/20 NEB 3 ipratropium-albute 17 017 mL, NEB, q2hr, rol(DuoNeb 0.5 PRN: Wheezing mg-2.5 mg/3 mL inhalation solution) 0.2 mL 03/27/20 SubCutaneous 20 units 20 insulin 17 017 units=0.2 mL, aspart(NovoLOG) SubCutaneous, Once 3 mL 03/27/20 NEB 3 ipratropium-albute 17 017 mL, NEB, q2hr rol(DuoNeb 0.5 (scheduled), mg-2.5 mg/3 mL PRN: inhalation Bronchospasms solution) Problems Date Dx Attending Type Code Diagnosis Diagnosed By Coded 11/25/2013 Aayush MCDONALD, Final 250.00 DM2/NOS UNCOMP NSU Asher Zac 11/25/2013 Aayush MCDONALD, Final 272.4 HYPERLIPIDEMIA NEC Asher Zac NOS 11/25/2013 Aayush MCDONALD, Final 276.51 DEHYDRATION Asher Zac 11/25/2013 Aayush MCDONALD, Final 429.9 HEART DISEASE NOS Asher Zac 11/25/2013 Aayush MCDONALD, Final 592.1 URETERAL CALCULUS Asher Zac 11/25/2013 Aayush MCDONALD, Final 599.0 URINARY TRACT INF NOS Asher Zac 11/25/2013 Aayush MCDONALD, Admitting 789.00 ABDOMINAL PAIN-SITE Asher Zac NOS 11/25/2013 Aayush MCDONALD, 789.09 ABDOMINAL PAIN-SITE Asher Zac NEC 11/25/2013 Helen Conner DO Final 244.9 HYPOTHYROIDISM NOS E 11/25/2013 Helen Conner DO Final 250.00 DM2/NOS UNCOMP NSU E 11/25/2013 Helen Conner DO Final 272.1 PURE HYPERGLYCERIDEMIA E 11/25/2013 Helen oCnner DO Final 338.29 CHRONIC PAIN NEC E 11/25/2013 Helen Conner DO Final 424.0 MITRAL VALVE DISORDER E 11/25/2013 Helen Conner DO Final 591 HYDRONEPHROSIS E 11/25/2013 Helen Conner DO Final 592.0 KIDNEY CALCULUS E 11/25/2013 Helen Conner DO Final 592.1 URETERAL CALCULUS E 11/25/2013 Helen Conner DO Final 594.1 BLADDER CALCULUS NEC E 11/25/2013 Helen Conner DO Final 724.5 BACKACHE NOS E 12/14/2013 Michael MCDONALD, Final 244.9 HYPOTHYROIDISM NOS Blake F 12/14/2013 Michael MCDONALD, Final 250.00 DM2/NOS UNCOMP NSU Blake F 12/14/2013 Michael MCDONALD, Final V53.6 FITTING URINARY Blake Bazzi DEVICES 09/22/2016 Garcia,, Admitting D64.9 Mayito-Emma 09/27/2016 Garcia,, Final D64.9 Anemia, unspecified Mayito-Emma 09/27/2016 Garcia,, Final E03.9 Hypothyroidism, Mayito-Emma unspecified 09/27/2016 Garcia,, Final E11.9 Type 2 diabetes Mayito-Emma mellitus without complications 09/27/2016 Garcia,, Final R20.2 Paresthesia of skin Mayito-Emma 09/27/2016 Garcia,, Reason R25.8 Other abnormal Mayito-Emma involuntary movements 09/27/2016 Garcia,, Final Z79.84 custodial (current) Mayito-Emma use of oral hypoglycemic drugs 09/27/2016 Garcia,, Final Z87.442 Personal history of Mayito-Emma urinary calculi 09/27/2016 Garcia,, Final Z87.891 Personal history of Mayito-Emma nicotine dependence 09/27/2016 Garcia,, Final Z90.49 Acquired absence of Mayito-Emma other specified parts of digestive tract 03/24/2017 Garcia,, Admitting D72.829 Mayito-Emma 04/03/2017 Garcia,, Final B96.5 Pseudomonas Mayito-Emma (aeruginosa) (mallei) (pseudomallei) as the cause of diseases c 04/03/2017 Garcia,, Final E03.9 Hypothyroidism, Mayito-Emma unspecified 04/03/2017 Garcia,, Final E11.65 Type 2 diabetes Mayito-Emma mellitus with hyperglycemia 04/03/2017 Garcia,, Final E87.1 Hypo-osmolality and Mayito-Emma hyponatremia 04/03/2017 Garcia,, Final E87.6 Hypokalemia Mayito-Emma 04/03/2017 Garcia,, Final F03.90 Unspecified dementia Mayito-Emma without behavioral disturbance 04/03/2017 Garcia,, Final J44.9 Chronic obstructive Mayito-Emma pulmonary disease, unspecified 04/03/2017 Garcia,, Admitting J69.0 Pneumonitis due to Mayito-Emma inhalation of food and vomit 04/03/2017 Garcia,, Final J90 Pleural effusion, not Mayito-Emma elsewhere classified 04/03/2017 Garcia,, Final M19.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, unspecified site 04/03/2017 Garcia,, Final N17.9 Acute kidney failure, Mayito-Emma unspecified 04/03/2017 Garcia,, Final R09.02 Hypoxemia Mayito-Emma 04/03/2017 Garcia,, Final R13.10 Dysphagia, unspecified Mayito-Emma 04/03/2017 Garcia,, Final R91.8 Other nonspecific Mayito-Emma abnormal finding of lung field 04/03/2017 Garcia,, Final 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.84 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) 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-Emma 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 of oral hypoglycemic 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 04/03/2017 Garcia,, Final J69.0 Pneumonitis due to Mayito-Emma inhalation of food and vomit 05/04/2017 Devika,, Final R13.10 Dysphagia, unspecified Aden 05/04/2017 Devika,, Final R47.02 Dysphasia Aden 05/04/2017 Devika,, Reason R13.10 Dysphagia, unspecified Aden 05/04/2017 Devika,, Reason R47.02 Dysphasia Aden Procedures Code Description Performed By Performed On 57.0 TU BLADDER Michael MCDONALD, Blake Bazzi 11/25/2013 CLEARANCE 57.32 CYSTOSCOPY NEC Michael MCDONALD, Blake Bazzi 2013 59.8 URETERAL Michael MCDONALD, Blake Bazzi 11/25/2013 CATHETERIZATION 11534 CYSTOSCOPY AND Blake Rodriguez MD 2013 TREATMENT Drainage of 2017 [id number] Right Lower Lung Lobe, Via Natural or Artificial Opening Endosc Results Test Result Range Glucose NPT - 03/24/17 13:08 Glucose NPT 402 mg/dL 70-100 CBC With Platelet and Differential - 03/24/17 13:26 Absolute Basophils 0.01 10*3/uL 0.00-0.20 Absolute Eosinophils 0.12 10*3/uL 0.00-0.50 Absolute Lymphocytes 1.10 10*3/uL 0.80-3.30 Absolute Monocytes 0.98 10*3/uL 0.30-1.00 Absolute Neutrophils 25.96 10*3/uL 1.90-7.00 Basophils 0 % 0-2 Rice Cell Occasional NA Differential Scanned Slide NA Eosinophils 0 % 0-4 HCT 39.3 % 42.0-52.0 HGB 12.8 g/dL 14.0-18.0 Immature Granulocytes 1.2 % 0.0-1.0 Lymphocytes 4 % 20-46 MCH 28.5 pg 27.0-32.0 MCHC 32.6 g/dL 32.0-36.0 MCV 87.5 fL 82.0-99.0 Monocytes 3 % 4-11 MPV 9.8 fL 9.4-12.3 Neutrophils 91 % 51-75 Nucleated RBC Automated 0.0 /100 WBC Ovalocytes Occasional NA Platelet Count 452 K/uL 150-400 RBC 4.49 10*6/uL 4.60-6.20 RDW 16.1 % 11.5-14.5 WBC 28.5 K/uL 4.8-10.8 Comprehensive Metabolic Panel (CMP) - 03/24/17 13:26 Albumin 3.0 g/dL 3.5-4.8 Alkaline Phosphatase 56 U/L 26-104 ALT (SGPT) 28 U/L 17-63 Anion Gap 12 mEq/L 3-20 AST (SGOT) 21 U/L 15-41 Bilirubin Total 0.5 mg/dL 0.2-1.2 BUN 87 mg/dL 4-20 Calcium 9.6 mg/dL 8.6-10.0 Chloride 98 mEq/L 99-109 CO2 18 mEq/L 22-32 Creatinine 1.56 mg/dL 0.64-1.27 Globulin 4.2 g/dL 1.9-4.3 Glucose 436 mg/dL 70-100 Potassium 4.9 mEq/L 3.6-5.1 Protein 7.2 g/dL 6.1-7.9 Sodium 128 mEq/L 136-144 eGFR - 03/24/17 13:26 eGFR 43 mL/min >60 Procalcitonin - 03/24/17 13:26 Procalcitonin 0.07 ng/mL 0.00-0.09 ED RAINBOW COLLECT - 03/24/17 13:27 PLASMA SEPARATOR TUBE Done mL SERUM SEPARATOR TUBE Done mL CITRATE BLUE Done mL Lavendar Tube Done mL Glucose NPT - 03/24/17 15:30 Glucose NPT 341 mg/dL 70-100 Glucose NPT - 03/24/17 21:25 Glucose NPT 280 mg/dL 70-100 Urinalysis with reflex microscopic - 03/24/17 21:45 Appearance Sl Cloudy NA Bilirubin Negative NA Negative Blood Negative NA Negative Color Yellow NA Glucose, Urine Pos 3+ Negative Ketones Negative Negative Leukocyte Esterase Negative NA Negative Nitrites Negative NA Negative pH 5.0 NA 5.0-8.0 Protein Negative NA Negative Specific [place] 1.015 NA 1.003-1.030 UA Collection type Clean Catch NA Urobilinogen Negative mg/dL <1.0 CBC With Platelet and Differential - 03/25/17 04:29 Absolute Basophils 0.01 10*3/uL 0.00-0.20 Absolute Eosinophils 0.28 10*3/uL 0.00-0.50 Absolute Lymphocytes 1.08 10*3/uL 0.80-3.30 Absolute Monocytes 1.76 10*3/uL 0.30-1.00 Absolute Neutrophils 18.36 10*3/uL 1.90-7.00 Basophils 0 % 0-2 Eosinophils 1 % 0-4 HCT 34.9 % 42.0-52.0 HGB 11.4 g/dL 14.0-18.0 Immature Granulocytes 0.8 % 0.0-1.0 Lymphocytes 5 % 20-46 MCH 27.7 pg 27.0-32.0 MCHC 32.7 g/dL 32.0-36.0 MCV 84.7 fL 82.0-99.0 Monocytes 8 % 4-11 MPV 9.0 fL 9.4-12.3 Neutrophils 85 % 51-75 Nucleated RBC Automated 0.0 /100 WBC Platelet Count 366 K/uL 150-400 RBC 4.12 10*6/uL 4.60-6.20 RDW 15.7 % 11.5-14.5 WBC 21.7 K/uL 4.8-10.8 Basic Metabolic Panel (BMP) - 03/25/17 04:29 Anion Gap 6 mEq/L 3-20 BUN 43 mg/dL 4-20 Calcium 8.4 mg/dL 8.6-10.0 Chloride 110 mEq/L 99-109 CO2 21 mEq/L 22-32 Creatinine 0.94 mg/dL 0.64-1.27 Glucose 155 mg/dL 70-100 Potassium 3.4 mEq/L 3.6-5.1 Sodium 137 mEq/L 136-144 eGFR - 03/25/17 04:29 eGFR >60 mL/min >60 Glucose NPT - 03/25/17 05:39 Glucose NPT 160 mg/dL 70-100 Glucose NPT - 03/25/17 14:05 Glucose NPT 394 mg/dL 70-100 Glucose NPT - 03/25/17 23:57 Glucose NPT 243 mg/dL 70-100 Glucose NPT - 03/26/17 05:20 Glucose NPT 178 mg/dL 70-100 Glucose NPT - 03/26/17 11:05 Glucose NPT 467 mg/dL 70-100 Glucose NPT - 03/26/17 14:42 Glucose NPT 278 mg/dL 70-100 Glucose NPT - 03/26/17 21:04 Glucose NPT 392 mg/dL 70-100 Glucose NPT - 03/27/17 06:15 Glucose NPT 243 mg/dL 70-100 CBC With Platelet No Differential - 03/27/17 09:56 HCT 33.3 % 42.0-52.0 HGB 10.7 g/dL 14.0-18.0 MCH 27.9 pg 27.0-32.0 MCHC 32.1 g/dL 32.0-36.0 MCV 86.7 fL 82.0-99.0 MPV 9.2 fL 9.4-12.3 Platelet Count 285 K/uL 150-400 RBC 3.84 10*6/uL 4.60-6.20 RDW 16.3 % 11.5-14.5 WBC 9.3 K/uL 4.8-10.8 Comprehensive Metabolic Panel (CMP) - 03/27/17 09:56 Albumin 2.2 g/dL 3.5-4.8 Alkaline Phosphatase 45 U/L 26-104 ALT (SGPT) 17 U/L 17-63 Anion Gap 5 mEq/L 3-20 AST (SGOT) 12 U/L 15-41 Bilirubin Total 0.3 mg/dL 0.2-1.2 BUN 18 mg/dL 4-20 Calcium 8.0 mg/dL 8.6-10.0 Chloride 108 mEq/L 99-109 CO2 24 mEq/L 22-32 Creatinine 0.90 mg/dL 0.64-1.27 Globulin 3.4 g/dL 1.9-4.3 Glucose 236 mg/dL 70-100 Potassium 3.6 mEq/L 3.6-5.1 Protein 5.6 g/dL 6.1-7.9 Sodium 137 mEq/L 136-144 eGFR - 03/27/17 09:56 eGFR >60 mL/min >60 Bronchial Washing Cell Count and Differential - 03/27/17 11:30 Appearance, Bronch Wash Cloudy NA Color, Bronch Wash Colorless NA Ciliated Cells, Bronch Wash 1 % Comments, Bronch Wash SEE COMMENT Eosinophils, Bronch Wash 1 % Lymphocytes, Bronch Wash 1 % Macrophages, Bronch Wash 2 % Neutrophils, Bronch Wash 92 % Nucleated Cells, Bronch Wash 4630 /mm3 Other Cells, Bronch Wash 2 % RBC, Bronch Wash 555 /mm3 Squamous Epith, Bronch Wash 1 % Glucose NPT - 03/27/17 18:27 Glucose NPT 483 mg/dL 70-100 Glucose NPT - 03/27/17 21:53 Glucose NPT 404 mg/dL 70-100 Glucose NPT - 03/27/17 22:31 Glucose NPT 316 mg/dL 70-100 CBC With Platelet No Differential - 03/28/17 04:56 HCT 33.3 % 42.0-52.0 HGB 11.0 g/dL 14.0-18.0 MCH 28.6 pg 27.0-32.0 MCHC 33.0 g/dL 32.0-36.0 MCV 86.5 fL 82.0-99.0 MPV 9.4 fL 9.4-12.3 Platelet Count 332 K/uL 150-400 RBC 3.85 10*6/uL 4.60-6.20 RDW 16.4 % 11.5-14.5 WBC 16.6 K/uL 4.8-10.8 Basic Metabolic Panel (BMP) - 03/28/17 04:56 Anion Gap 7 mEq/L 3-20 BUN 22 mg/dL 4-20 Calcium 8.0 mg/dL 8.6-10.0 Chloride 104 mEq/L 99-109 CO2 24 mEq/L 22-32 Creatinine 0.98 mg/dL 0.64-1.27 Glucose 267 mg/dL 70-100 Potassium 3.9 mEq/L 3.6-5.1 Sodium 135 mEq/L 136-144 eGFR - 03/28/17 04:56 eGFR >60 mL/min >60 Glucose NPT - 03/28/17 05:28 Glucose NPT 303 mg/dL 70-100 Glucose NPT - 03/28/17 11:22 Glucose NPT 284 mg/dL 70-100 Encounters ACCT No. Visit Discharge Status Pt. Type Provider Facility Loc./Unit Complaint Date/Time [id number] 12/14/2013 12/14/2013 DIS Outpatie Zakharia Via J5W 24 17:35:00 23:00:00 christen MCDONALD [facility] [id number] 11/25/2013 11/26/2013 DIS Inpatien Ubaldo LEIVA, Via J5W 70 06:18:00 13:55:00 t [facility] [id number] 11/25/2013 11/25/2013 DIS Emergenc Looney Via TERM 07 01:07:00 05:40:00 sharmaine MCDONALD [facility] [id number] 11/29/2013 Document 13 10:22:00 Registra tion [id number] 05/01/2017 05/01/2017 DIS Outpatie Devika,, Via [facility] Diag Dysphasia 309 07:37:00 23:59:00 christen [facility] [id number] 03/24/2017 03/28/2017 DIS Inpatien Jose,, Via [facility] F8SW leukocytosis, 484 12:53:00 15:00:00 cornelius [facility] [id number] 09/22/2016 09/23/2016 DIS Outpatie Jose,, Via [facility] F5SE anemia 984 13:25:00 11:29:00 [facility] [place] [id number] 03/28/2017 Document [id number] 05:17:21 Registra tion [id number] 2017 Document [id number] 05:17:02 Registra tion [id number] 03/25/2017 Document [id number] 05:18:05 Registra tion [id number] 09/23/2016 Document [id number] 05:15:51 Registra tion [id number] 06/22/2015 Document 832 11:38:00 Registra tion [id number] 05/31/2015 Document [id number] 11:55:22 Registra tion [id number] 05/31/2015 Document [id number] 11:48:59 Registra tion
[2017-09-06] MEDS ORDERED: SALINE FLUSH 10ml SYRINGE IVF PRN (12:23)
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
[2017-09-06] MEDS ORDERED: HALOPERIDOL 5 MG/ML INJECTION IVP PRN (16:36)
[2017-09-06] MEDS: NS 1,000 ML IV SCH (17:05)
[2017-09-06 20:51] VITALS: BMI 16.7
[2017-09-06] MEDS ORDERED: QUETIAPINE 25 MG TABLET PO SCH (21:00)
[2017-09-07] MEDS: NS 1,000 ML IV SCH (03:11)
[2017-09-07] MEDS ORDERED: LEVOTHYROXINE 75 MCG TABLET PO SCH ×2 (06:30→07:38)
--- NOTE | 2017-09-07 07:14 | XRay Report ---
Indication: med. clearance Procedure: XR chest 1V: Encounter: Initial Comparison: None Technique: A single portable AP chest radiograph was obtained. Findings: Lungs and airways: Normal lung volumes. Chronic appearing increased interstitial markings. No focal airspace consolidation. Normal pulmonary vasculature. Pleura: No pleural effusion or pneumothorax. Heart and mediastinum: Aortic atherosclerosis. The cardiomediastinal silhouette is otherwise within normal limits. Osseous structures and soft tissues: No acute osseous abnormality is seen. Degenerative arthrosis of the right shoulder. Impression: No acute cardiopulmonary process. .
--- NOTE | 2017-09-07 07:29 | CT Scan Report ---
EXAM: CT head/brain wo con DATE: 09/06/2017 12:00 AM ENCOUNTER: Initial INDICATION: med. clearance, new abnormal behavior COMPARISON: None available. TECHNIQUE: 5 mm axial tomographic images were obtained of the head without contrast. The current CT scan was performed using radiation dose-reduction techniques. FINDINGS: Ill defined hypoattenuations within the periventricular deep white matter, a nonspecific finding, however most suggestive of chronic small vessel ischemic disease. More confluent encephalomalacia within the left temporal lobe consistent with a chronic ischemic infarction. Intracranial atherosclerotic calcifications noted. The merida-white matter junction is otherwise normal. No intra or extra-axial mass or hemorrhage is identified. There is no midline shift. Symmetric prominence of the ventricles and cerebral sulci consistent with age appropriate cerebral volume loss. The ventricles are otherwise normal in shape and morphology. The basilar cisterns are patent. No acute osseous or soft tissue abnormality. Suggestion of prior surgical changes of the right posterior arch of C1. The visualized paranasal sinuses are normal. The visualized portions of the orbits and globes are normal. The mastoid air cells are clear. IMPRESSION: 1. No acute intracranial process identified by CT. 2. 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 3. Age appropriate cerebral volume loss and mild chronic small vessel ischemic disease. The above report concurs with the preliminary report provided by virtual radiologic at 1:34 PM. .
[2017-09-07] MEDS: ASPIRIN *EC* 81 MG TABLET PO SCH ×2 (07:56→09:21)
--- NOTE | 2017-09-07 09:14 | Progress Note ---
- Date 09/07/17 Subjective: Bridger was awake, alert/oriented to self only. was at bedside and she reported that he's the same cognitively. She reports that he gets this way when he's dehydrated but she didn't think he was dehydrated this time. Bridger denies headaches, difficulty breathing, or abdominal pain/nausea. His states that he's had a diffuse rash x 3 weeks. He had the same rash in Mar and was told it was Braham mites. Bedbugs were also a consideration but she doesn't have rashes. She denies any recent laundry/food changes. No exotic travels; last travel was to [place] in July. They do not have pets. She states that he was treated with a steroid cream and Prednisone (but adds she doesn't want him on prednisone ever again d/t pronounced hyperglycemia). Objective Vital signs: Temperature 96.3 F L 09/07/17 00:50 Pulse Rate 98 09/07/17 00:50 Respiratory Rate 22 09/07/17 00:50 Blood Pressure 115/65 09/07/17 00:50 Pulse Oximetry 95 09/07/17 00:50 Height/Weight/BMI: Height 1.57 m Weight 41.4 kg Body Mass Index 16.7 - Constitutional Present: no acute distress, well nourished, well developed, thin - Routine HEENT Exam Eye: Present: PERRL. Absent: conjunctival icterus, scleral injection ENT: Present: mucous membranes moist, oropharynx clear Comments: mild pharyngeal erythema - Routine Respiratory Exam Present: CTA bilaterally Comments: decreased air movement right base otherwise clear - Routine Cardiovascular Exam Present: RRR, S1, S2 - Routine Abdominal Exam Present: soft, normoactive bowel sounds, non tender, distended - Routine Extremities Exam Present: no edema, pulses intact, normal capillary refill - Routine Musculoskeletal Exam Musculoskeletal: Present: moving extremities well - Routine Skin Exam Present: rash (1-2 mm erythemous papular dermatitis rash diffusely, some lesions excoriated. Web spaces of fingers are spared. There is no tracking.) - Routine Neurological Exam Present: alert. Absent: oriented X3 (oriented to self. Unable to provide any insight into month/year or location (unable even to guess the City).) - Routine Psychiatric Exam Present: normal affect Results - Labs CBC & Chem 7: 09/07/17 08:16 09/07/17 08:16 Assessment and Plan (1) Cognitive and behavioral changes Current visit: Yes Status: Acute (2) Acute renal failure Current visit: Yes Status: Acute (3) Hyperkalemia Current visit: Yes Status: Resolved Assessment and Plan: Impression: Cognitive deficits with behavioral changes. Acute renal failure -- improving Hyperkalemia (POA) -- resolved Thrombocytosis (POA) -- improving Leukocytosis without evidence of infection Diffuse rash/dermatitis (POA) DM2 Aspiration with recent pneumonia Pulmonary nodules Hypothyroid HTN CAD Plan: 09/07/17 K improved to 4.3; Na increased slightly to 147. Change IVF to 1/2 NS. CHANTEL improved with BUN down to 38 and Cr down to 1.5. Renal sono pending. TSH low - denies any recent Synthroid changes. Will decrease dose from 75 to 50 mcg. Restart glipizide but continue to hold metformin d/t recent CHANTEL. Continue to hold Lasix/ARB. WBC up to 12 without clear evidence of infection. Platelets slightly improved. Will obtain [employer] screen. UDS negative. RPR and free T4 pending. Surya Discussed with [facility] screener-not meeting criteria for inpatient geropsych admission at this time. Behaviors have improved from yesterday. Creatinine improving and potassium normalized. Discussed with about discharge to home. Agreeable. She can call [facility] if psychiatric status changes. Will have patient f/u with PCP this week-recommend rechecking BMP at that time. Would hold Cozaar, Lasix, and metformin until he can be seen in clinic. See orders for details. DVT Prophylaxis: SCD's - Physician Narrative Physician: Albert London MD Narrative: Date: 09/07/17 Time: 1729 Have independently interviewed and examined pt. Chart reviewed. Case discussed with [facility] Screening nursing, patient's , and my DIGITAL COMPUTER OPERATOR. Care plan developed with my supervision; agree with above. Patient without acute medical complaints at this time. Breathing well-not feeling SOA since IVF started. Eating well. No nausea or ab pain. Lungs: Decreased bilaterally, no distress CV: regular AB: soft nt/nd Plan: Discussed with [facility] screener-not meeting criteria for inpatient geropsych admission at this time. Behaviors have improved from yesterday. Creatinine improving and potassium normalized. Discussed with about discharge to home. Agreeable. She can call [facility] if psychiatric status changes. Will have patient f/u with PCP this week-recommend rechecking BMP at that time. Would hold Cozaar, Lasix, and metformin until he can be seen in clinic. See orders for details. Hospital Course Summary Disclaimer: The visit summary below is not to be considered part of the above Progress Note. Hospital Course: Impression: Cognitive deficits with behavioral changes. Acute renal failure Hyperkalemia (POA) DM2 Aspiration with recent pneumonia Pulmonary nodules Hypothyroid HTN CAD Plan: 09/06/17 Needs medical stabilization, then likely transfer to [facility]. Unclear cause of confusion - assess UDS, UA, RPR, TSH. He does not appear septic. High risk of recurrent aspiration-Consult ST to evaluate swallow. Hold nephrotoxic agents- including Lasix, ARB. Add IVF. Assess bladder scan, renal sono to ensure he does not have hydronephrosis with history of prostate concerns. Monitor BG. Hold Glipizide/metformin. He is fairly agitated. PRN Haldol for agitation. Add Seroquel Q HS due to hallucinations. 09/07/17 K improved to 4.3; Na increased slightly to 147. Change IVF to 1/2 NS. CHANTEL improved with BUN down to 38 and Cr down to 1.5. TSH low - denies any recent Synthroid changes. Will decrease dose from 75 to 50 mcg. Restart glipizide but continue to hold metformin d/t recent CHANTEL. Continue to hold Lasix/ARB. WBC up to 12 without clear evidence of infection. Platelets slightly improved. Will obtain [facility] screen. UDS negative. RPR and free T4 pending. Discussed with [facility] screener-not meeting criteria for inpatient geropsych admission at this time. Behaviors have improved from yesterday. Creatinine improving and potassium normalized. Discussed with about discharge to home. Agreeable. She can call [facility] if psychiatric status changes. Will have patient f/u with PCP this week-recommend rechecking BMP at that time. Would hold Cozaar, Lasix, and metformin until he can be seen in clinic. See orders for details.
[2017-09-07] MEDS ORDERED: 1/2 NS 1,000 ML IV SCH (09:30)
[2017-09-07 16:31] VITALS: BP 126/63; PULSE 75; RESP 18; TEMP 97.8; O2SAT 95
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
[2017-09-08] MEDS ORDERED: GlipiZIDE 5 MG TABLET PO SCH (09:00)
== END 2017-09-07 18:45 | disposition home or self-care (01) ==
LOC: ED 11:53 → MED 11:53
PROVIDERS: ADMIT Hospitalist; ATTEND Hospitalist